=== PATIENT | male | born 1970 | race Caucasian/White ===

== ENCOUNTER 2016-08-07 11:24 | Emergency (ER) | payer MEDICAID ==
[2016-08-07 11:29] VITALS: RESP 16
--- NOTE | 2016-08-07 13:14 | EDPHY ---
H & P Time Seen by Provider: 08/07/16 12:44 HPI/ROS: CHIEF COMPLAINT: shortness of breath HISTORY OF PRESENT ILLNESS: Patient is a 45-year-old male with no previous lung disease who presents emergency department with cough, sweats and fever. Symptoms started 3 days ago. (triage states 2 days ago). Patient states lot of kids have been sick. He has a nonproductive cough. He has no chest pain. No nausea or vomiting. No abdominal pain. Patient did not take his temperature but he has had significant sweats. No leg pain or swelling. No recent travel. No recent antibiotic use REVIEW OF SYSTEMS: My complete review of systems is negative except as mentioned in the HPI. Past Medical/Surgical History: Back pain Past surgical history: Appendectomy Social history: The patient does not smoke Smoking Status: Never smoked Physical Exam: 36.9, 131/91, 94, 16, 96% on room air GENERAL: Well-appearing, in no acute distress, alert. HEENT: Eyes normal to inspection, no signs of dehydration. NECK: Supple. Normal. RESPIRATORY: Clear to auscultation bilaterally, no rales, rhonchi or wheezing. Normal CVS: Regular rate and rhythm, no rubs, murmurs, or gallops. ABDOMEN: Soft, nontender, nondistended, no organomegaly. BACK: Normal to inspection, no CVA tenderness. SKIN: Normal color, no rash, warm, dry. No pallor. EXTREMITIES: No pedal edema, no calf tenderness, no Homans sign or cords, no joint swelling. NEURO/PSYCH: Alert and oriented x3, normal mood and affect Constitutional: Initial Vital Signs Temperature (C) 36.9 C 08/07/16 11:25 Heart Rate 94 08/07/16 11:25 Respiratory Rate 16 08/07/16 11:25 Blood Pressure 131/91 H 08/07/16 11:25 O2 Sat (%) 96 08/07/16 11:25 O2 Delivery Mode Room Air Allergies/Adverse Reactions: Penicillins Allergy (Verified 07/06/14 08:32) Home Medications: Medication Instructions Recorded Azithromycin 250 mg PO DAILY #4 tablet 08/07/16 Medical Decision Making ED Course/Re-evaluation: In the emergency department I discussed possible etiologies with the patient. I do not feel he needs a flu swab as the symptoms have been present for 3 days. I do not feel the patient will need admission. An x-ray was ordered. X-ray: No focal infiltrate visible. The patient does have findings consistent with bronchitis. I discussed the result with the patient. Because he is having intermittent fevers and diaphoresis he will be treated with azithromycin for possible early pneumonia. He was given azithromycin 500 mg orally in the emergency department given a prescription for 4 more days. I gave the patient warnings prior to leaving. He will return with worsening symptoms. Differential Diagnosis: My differential includes but is not limited to pneumonia, bronchitis, mass, malignancy, influenza, viral illness - Data Points Medications Given: Discontinued Medications Albuterol (Proventil Neb) 3 ml IH EDNOW ONE Stop: 08/07/16 13:54 Last Admin: 08/07/16 13:56 Dose: Not Given Departure - Departure Disposition: Home, Routine, Self-Care Clinical Impression: Acute bronchitis Qualifiers: Bronchitis organism: unspecified organism Qualifier Code: (J20.9) Acute bronchitis, unspecified Condition: Good Instructions: Acute Bronchitis (ED) Additional Instructions: Return with increasing shortness of breath, cough, chest pain or any other concerns. Referrals: Rubén Hammer MD [Medical Doctor] - 5-7 days, call for appt. Prescriptions: Azithromycin 250 mg PO DAILY #4 tablet
--- NOTE | 2016-08-07 13:40 | DX ---
Chest, Two Views at 1253 hours History: Cough, shortness of breath. Comparison: April 2016 Findings: Cardiac silhouette is within normal range. Bilateral peribronchial thickening. No pneumonia , congestive heart failure, pleural effusion, or pneumothorax. Impression: 1. Bronchitis. 2. No definite pneumonia.
[2016-08-07] MEDS ORDERED: ALBUTEROL 3 ML DEYVIAL IH ONE (13:53)
[2016-08-07] MEDS ORDERED: ALBUTEROL 3 ML DEYVIAL ONE (13:54)
[2016-08-07 14:08] VITALS: BP 129/81; PULSE 74; TEMP 97.7; O2SAT 94
[2016-08-07] MEDS ORDERED: AZITHROMYCIN 250 MG TAB PO ONE (14:10)
[2016-08-07] MEDS ORDERED: ALBUTEROL INH PREPACK MDI TAKEHOME ONE (14:13)
== END 2016-08-07 14:17 | disposition home or self-care (01) ==
DX: J20.9 Acute bronchitis, unspecified (principal)

== ENCOUNTER 2017-02-23 12:27 | Emergency (ER) | payer MEDICAID ==
[2017-02-23] MEDS ORDERED: KETOROLAC 30 MG/1 ML SDV IVP ONE (13:19)
--- NOTE | 2017-02-23 13:28 | CPEKG ---
Heart Rate: 78 RR Interval: 769 P-R Interval: 156 QRSD Interval: 84 QT Interval: 364 QTC Interval: 415 P [place]: 47 QRS [place]: 23 T Wave [place]: 21 EKG Severity - NORMAL ECG - EKG Impression: SINUS RHYTHM Electronically Signed By: Nicolás Bliss 23-Feb-2017 15:01:38
[2017-02-23 13:37] LABS: ADD DIFF? YES; ADD MORPH? NO; ADD SCAN? NO; ATYPICAL LYMPHOCYTE FLAG 50 (0-99); FRAGMENT RBC FLAG 0 (0-99); HEMATOCRIT 39.7 % (40.0-51.0); HEMOGLOBIN 13.9 g/dL (13.7-17.5); LEFT SHIFT FLG 40 (0-99); LIPEMIA HEMOLYSIS FLAG 90 (0-99); MEAN CELL HEMOGLOBIN 30.9 pg (27.9-34.1); MEAN CELL VOLUME 88.2 fL (81.5-99.8); MEAN PLATELET VOLUME 9.9 fL (8.7-11.7); PLATELET CLUMPS FLAG 0 (0-99); PLATELET COUNT 295 10^3/uL (150-400); RED CELL DISTRIBUTION WIDTH 13.4 % (11.5-15.2)
[2017-02-23 13:50] LABS: SEDIMENTATION RATE 10 MM/HR (0-15)
[2017-02-23 13:51] LABS: ANION GAP 12 mEq/L (8-16); CARBON DIOXIDE 22 mEq/l (22-31); CHLORIDE 109 mEq/L (97-110); CREATININE 1.1 mg/dL (0.7-1.3); GLOMERULAR FILTRATION RATE > 60; GLUCOSE 90 mg/dL (70-100); POTASSIUM 4.4 mEq/L (3.5-5.2); SODIUM 143 mEq/L (134-144)
[2017-02-23 14:14] LABS: PLATELET ESTIMATE ADEQUATE (ADEQ)
--- NOTE | 2017-02-23 14:35 | EDPHY ---
H & P Time Seen by Provider: 02/23/17 12:53 HPI/ROS: This patient describes pain in both thumbs both knees and back and neck. He explains the symptoms been present for 3 days. He explains that the pain 1st occurred in both knees achy in nature right slightly more than left worsened with walking without any antecedent injury. Pain became severe and achy at its peak intensity the 1st 24 hours of the illness and then the knee pain diminish to mild intensity but he developed bilateral thumb pain peak intensity 8/10 achy in nature with slight swelling to both thumbs. Over the same period time the past 24 hours he has noted some midline neck and back discomfort without injury. He has never had aches in these joints like this before and it struck him as unusual so came in for evaluation. He reports a recent diarrheal illness last week that has run through his family including his and his daughter. He had 1 episode of nausea vomiting without but has recovered with no lingering GI symptoms. He has had no other recent illnesses. ROS: No high fevers or chills. HEENT: No recent URI symptoms. No conjunctivitis. : No urethral discharge. No STD risk factors Pulmonary: No symptoms Cardiovascular: No pallor to the affected joints or other discoloration. 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 He reports no myalgias. The pain all seems to be in joints GI: No symptoms currently see HPI Neuro: No numbness or tingling 10 point ROS is otherwise negative. Smoking Status: Never smoked Physical Exam: Physical Exam Vital signs are normal. General: No acute distress HEENT: No coryza. Oropharynx is clear with no erythema or exudates. Eyes: Pupils equal and react to light. Extraocular motions are intact. Lungs: Clear to auscultation bilaterally. No respiratory distress. Cardiac: Regular rate and rhythm with no murmur gallop or rub. Brisk capillary refill is intact throughout. Skin: No rash or pallor. No splinter hemorrhages the fingernails. Musculoskeletal: Patient has no significant midline neck or back tenderness despite his discomfort there and retains good range of motion his neck and back. Extremity exams are notable for mild swelling to bilateral thumb set the carpal metacarpal joint region extending to the interphalangeal joints but no warmth to touch or erythema. He retains full range of motion of his thumbs. Knee exams are benign bilaterally at this point with no significant swelling or tenderness. No erythema to the knees. Neuro: Alert and oriented x3 with no sensorimotor deficits. Initial differential diagnosis: Rheumatoid arthritis, polyarthralgia rheumatica , post diarrheal synovitis, other rheumatologic disorder Constitutional: Initial Vital Signs Temperature (C) 36.6 C 02/23/17 12:40 Heart Rate 86 02/23/17 12:40 Respiratory Rate 18 02/23/17 12:40 Blood Pressure 151/96 H 02/23/17 12:40 O2 Sat (%) 94 02/23/17 12:40 O2 Delivery Mode Room Air Allergies/Adverse Reactions: Penicillins Allergy (Verified 02/23/17 12:34) Home Medications: Medication Instructions Recorded Ibuprofen [Motrin (*)] 600 mg PO Q6 PRN #30 tab 02/23/17 traMADol [Ultram 50 mg (*)] 50 - 100 mg PO Q4 PRN #18 tab 02/23/17 MDM/Departure - MDM Diagnostics: Patient's CBC is normal, rheumatoid factor negative, basic metabolic panel normal. Discussion: Patient with mild multiple arthralgias, family history of rheumatoid arthritis but doubt rheumatoid arthritis given negative rheumatoid factor. Doubt significant reactive synovitis with normal ESR. Patient appears nontoxic. Not think he has septic joints or other concerning findings. He may simply have some mild DJD with increasing symptoms due to his work. He also may have post viral symptoms. I counseled him regarding this. He will follow up with mechanical expert Dr. Monahan for any ongoing symptoms. He will return for any significant worsening Medications Given: Discontinued Medications Ketorolac Tromethamine (Toradol) 30 mg IVP EDNOW ONE Stop: 02/23/17 13:20 Last Admin: 02/23/17 13:26 Dose: 30 mg - Depart Disposition: Home, Routine, Self-Care Clinical Impression: Arthralgia of multiple joints Condition: Good Instructions: Arthralgia (ED) Additional Instructions: Diagnosis: Multiple arthralgias Plan: Ibuprofen-600 mg per 6 hours as needed for pain Tylenol in addition if needed For pain prevents sleep-tramadol if needed. No driving, alcohol or come tramadol Follow up with Dr. Bennett-mechanical expert for any ongoing symptoms despite the treatment plan. Prescriptions: Ibuprofen [Motrin (*)] 600 mg PO Q6 PRN #30 tab PRN Reason: Pain traMADol [Ultram 50 mg (*)] 50 - 100 mg PO Q4 PRN #18 tab PRN Reason: breakthrough pain Referrals: [facility] [Other] - As per Instructions Agusto Monahan MD [[facility] Primary Care Provider] - As per Instructions
[2017-02-23 14:56] VITALS: BP 122/76; PULSE 75; RESP 16; TEMP 97.7; O2SAT 95
== END 2017-02-23 14:45 | disposition home or self-care (01) ==
LOC: CED 12:27
DX: M25.561 Pain in right knee (principal); M25.562 Pain in left knee
CPT/HCPCS: 80048-PO; 85025-PO; 85652-PO; 96374; J1885

== ENCOUNTER 2017-07-06 10:12 | Emergency (ER) | payer MEDICAID ==
[2017-07-06 10:30] VITALS: RESP 18; TEMP 98.2
[2017-07-06] MEDS ORDERED: OXYCODONE/APAP 5/325 TAB PO ONE (10:33)
--- NOTE | 2017-07-06 10:45 | EDPHY ---
H & P Stated Complaint: low back injury while heavy lifting today at 0830 Time Seen by Provider: 07/06/17 10:21 HPI/ROS: Chief Complaint: Back pain HPI: 46-year-old male had acute onset of left lower back pain this morning when he was lifting a 80 lb sec up concrete. Patient states he felt a pop in his left lower back. Had immediate onset of pain. No numbness or weakness although he has had some little bit of tingling in his left leg. Does have a history of back pain in the past but not for quite a few years. He is ambulating with some discomfort. No loss of urine. No recent illness. ROS: 10 point Review of Systems is negative except as noted in the HPI. PMH: None Social History: No smoking, no alcohol, no recreational drug use Family History: non-contributory Physical Exam: Gen: Awake, Alert, No Distress HEENT: Nose: no rhinorrhea Eyes: PERRLA, EOMI Mouth: Moist mucosa Neck: Supple, no JVD Chest: nontender, lungs clear to auscultation Heart: S1, S2 normal, no murmur Abd: Soft, non-tender, no guarding Back: no CVA tenderness, no midline tenderness mild left paraspinal soft tissue tenderness Ext: no edema, non-tender Skin: no rash Neuro: CN II-XII intact, Sensation grossly intact, Strength 5/5 in bilateral upper and lower extremities, he has 2+ patellar reflexes bilaterally, toes are downgoing. Sensations intact in all lower extremity dermatomes. - Personal History Tetanus Vaccine Date: 2010 - Medical/Surgical History Hx Asthma: No Hx Chronic Respiratory Disease: No Hx Diabetes: No Hx Cardiac Disease: No Hx Renal Disease: No Hx Cirrhosis: No Hx Alcoholism: No Hx HIV/AIDS: No Hx Splenectomy or Spleen Trauma: No Other PMH: appy, diverticulitis - Social History Smoking Status: Never smoked Constitutional: Initial Vital Signs Temperature (C) 36.8 C 07/06/17 10:28 Heart Rate 79 07/06/17 10:28 Respiratory Rate 18 07/06/17 10:28 Blood Pressure 155/75 H 07/06/17 10:28 O2 Sat (%) 96 07/06/17 10:28 O2 Delivery Mode Room Air Allergies/Adverse Reactions: Penicillins Allergy (Verified 07/06/17 10:26) Home Medications: Medication Instructions Recorded Hydrocodone/Acetaminophen 1 - 2 each PO Q4-6PRN PRN #10 07/06/17 [Hydrocodon-Acetaminophen 5-325] tablet Medical Decision Making ED Course/Re-evaluation: 46-year-old male with acute onset of low back pain after lifting. Symptoms consistent with a muscle strain or possible mild disc herniation. He has no red flags for acute cauda equina syndrome. No indications for MRI at this time. Sensations intact. Reflexes are normal. He is ambulating. Will give him analgesia and ice. Instructions for back exercises and follow up as an outpatient. Departure - Departure Disposition: Home, Routine, Self-Care Clinical Impression: Lumbar strain Condition: Good Instructions: Low Back Strain (ED), Lower Back Exercises (ED), Core Strengthening Exercises (ED) Additional Instructions: Take ibuprofen, 600 mg, 3 times a day. You may also take acetaminophen, 1000 mg every 6 hours. Make sure to remain active. Did do not lay in bed or sit in a chair for long periods. It is important to remain active and keep your back moving in order to improve. Please see the attached back exercise instructions. Referrals: Doctor Not,On Staff, [Primary Care Provider] - As per Instructions Prescriptions: Hydrocodone/Acetaminophen [Hydrocodon-Acetaminophen 5-325] 1 - 2 each PO Q4- 6PRN PRN #10 tablet PRN Reason: Pain, Severe
[2017-07-06 11:44] VITALS: BP 137/86; PULSE 80; O2SAT 95
== END 2017-07-06 11:19 | disposition home or self-care (01) ==
LOC: CED 10:12
DX: S39.012A Strain of muscle, fascia and tendon of lower back, initial encounter (principal); X50.0XXA Overexertion from strenuous movement or load, initial encounter

== ENCOUNTER 2017-09-04 09:07 | Emergency (ER) | payer MEDICAID ==
[2017-09-04 09:15] VITALS: TEMP 97.9
--- NOTE | 2017-09-04 09:53 | EDPHY ---
H & P Stated Complaint: COUGH, HARD TO BREATH SINCE YESTERDAY; FLU 10DAYS AGO Time Seen by Provider: 09/04/17 09:22 HPI/ROS: Chief Complaint: Cough, shortness of breath HPI: 36-year-old male presenting with worsening cough and shortness of breath over the past week. Patient states that his whole family has had flu-like symptoms for the past 2 weeks and he developed symptoms about 10 days ago. Symptoms lasted for about a week and seemed to get better several days ago. Over the course of last couple days he has been having worsening dry cough and associated shortness of breath. Cough is mostly nonproductive. Occasional some yellowish sputum. He has had some mild tightness in his chest with this cough. No longer having any fevers or chills. No body aches. No headache. No nausea or vomiting. Is having some mild shortness of breath when he exerts himself or goes upstairs. No substernal chest pain. ROS: 10 point Review of Systems is negative except as noted in the HPI. PMH: Denies Social History: No smoking, no alcohol, no recreational drug use, does chew tobacco Family History: non-contributory Physical Exam: Gen: Awake, Alert, No Distress HEENT: Nose: no rhinorrhea Eyes: PERRLA, EOMI Mouth: Moist mucosa Neck: Supple, no JVD Chest: nontender, diffuse expiratory wheeze, no focal rales or rhonchi Heart: S1, S2 normal, no murmur Abd: Soft, non-tender, no guarding Back: no CVA tenderness, no midline tenderness Ext: no edema, non-tender Skin: no rash Neuro: CN II-XII intact, Sensation grossly intact, Strength 5/5 in bilateral upper and lower extremities - Personal History Current Tetanus/Diphtheria Vaccine: Yes Tetanus Vaccine Date: 2010 - Medical/Surgical History Hx Asthma: No Hx Chronic Respiratory Disease: No Hx Diabetes: No Hx Cardiac Disease: No Hx Renal Disease: No Hx Cirrhosis: No Hx Alcoholism: No Hx HIV/AIDS: No Hx Splenectomy or Spleen Trauma: No Other PMH: appy, diverticulitis - Social History Smoking Status: Never smoked Constitutional: Initial Vital Signs Temperature (C) 36.6 C 09/04/17 09:11 Heart Rate 88 09/04/17 09:11 Respiratory Rate 20 09/04/17 09:11 Blood Pressure 140/78 H 09/04/17 09:11 O2 Sat (%) 95 09/04/17 09:11 Allergies/Adverse Reactions: Penicillins Allergy (Verified 09/04/17 09:15) Home Medications: Medication Instructions Recorded Albuterol [Proventil Inhaler HFA 1 - 2 puffs IH Q4H PRN #1 mdi 09/04/17 (*)] Medical Decision Making - Diagnostics Imaging Results: Imaging Impressions Chest X-Ray 09/04/17 09:27 Impression: Chronic or recurrent airways disease. No pneumonia. ED Course/Re-evaluation: Chest x-ray is consistent with airways disease, no pneumonia. Patient given albuterol MDI with spacer. Will discharge with follow-up with primary care physician. Departure - Departure Disposition: Home, Routine, Self-Care Clinical Impression: Acute bronchitis Condition: Good Instructions: Acute Bronchitis (ED), Bronchospasm (ED), Wheezing (ED) Additional Instructions: May use inhaler, 1-2 puffs every 2-4 hours as needed for cough or wheeze. Always use the spacer when you use inhaler. Follow up with your primary care physician in 4-5 days if symptoms are not improving. Return to the emergency depart for increasing shortness of breath, cough, chest pain, or any other concerns. Referrals: Unknown,Unknown [Primary Care Provider] - As per Instructions Prescriptions: Albuterol [Proventil Inhaler HFA (*)] 1 - 2 puffs IH Q4H PRN #1 mdi PRN Reason: Wheezing
[2017-09-04] MEDS ORDERED: ALBUTEROL 3 ML DEYVIAL IH ONE (09:54)
[2017-09-04 10:13] VITALS: BP 140/85; PULSE 82; RESP 18; O2SAT 94
== END 2017-09-04 10:12 | disposition home or self-care (01) ==
LOC: CED 09:07
DX: J20.9 Acute bronchitis, unspecified (principal)
CPT/HCPCS: 71046-PO; J7613

== ENCOUNTER 2019-01-01 21:38 | Emergency (ER) | payer OTHER, MEDICAID | END 2019-01-01 23:06 | disposition home or self-care (01) | LOC: CED 21:38 ==